=== PATIENT | male | born 1995 | race Caucasian/White ===

== ENCOUNTER 2020-08-20 18:18 | Observation (INO) | payer SELFPAY ==
[~2020-08-20 18:18] MED LIST: Dexamethasone 20 MG/5 ML VIAL ONE; Ketorolac Tromethamine 30 MG/ML VIAL ONE; Lidocaine 1% PF 5 ML VIAL ONE; Ondansetron PF 4 MG/2 ML Vial ONE; PROPOFOL 200 MG/20 ML VIAL ONE; diphenhydrAMINE 50 MG/ML VIAL ONE
[2020-08-20] MEDS ORDERED: Promethazine HCl 25 MG/ML VIAL ONE (18:57)
[2020-08-20] MEDS ORDERED: Morphine 4 MG/ML VIAL ONE (18:57)
[2020-08-20] MEDS ORDERED: Boostrix 0.5 ML (Tdap) VIAL ONE (19:28)
--- NOTE | 2020-08-20 19:32 | RAD ---
LEFT FOOT RADIOGRAPHS THREE VIEWS: 08/20/20 PROVIDED CLINICAL HISTORY: Left foot injury. FINDINGS: There is a comminuted fracture involving the medial aspects of the first metatarsal shaft. There is o verlying soft tissue irregularity. No additional fracture is evident. Alignment appears anatomic. Cassie nt spaces appear preserved. IMPRESSION: Markedly comminuted, incomplete fracture involving the medial aspects of the first metatarsal shaft. POS: BETTY
[2020-08-20] MEDS ORDERED: cefTRIAXone\\ROCEPHIN 1 GM VIAL ONE (20:01)
[2020-08-20] MEDS ORDERED: hydrALAZINE 20 MG/ML VIAL SLOW IVP PRN (20:36)
[2020-08-20] MEDS ORDERED: Morphine 4 MG/ML VIAL SLOW IVP PRN (20:36)
[2020-08-20] MEDS ORDERED: Ondansetron PF 4 MG/2 ML Vial IVP PRN (20:36)
[2020-08-20] MEDS ORDERED: Dextrose 5% in Water 1,000 ML IV PRN (20:36)
[2020-08-20] MEDS ORDERED: Dextrose 50% Abboject 50 ML SYRINGE SLOW IVP PRN (20:36)
[2020-08-20] MEDS ORDERED: Cyclobenzaprine 10 MG TAB PO PRN (20:39)
[2020-08-20] MEDS ORDERED: Ketorolac Tromethamine 30 MG/ML VIAL ONE (20:39)
[2020-08-20] MEDS ORDERED: traMADol HCl 50 MG TAB PO PRN ×2 (20:39)
[2020-08-20] MEDS ORDERED: Ondansetron PF 4 MG/2 ML Vial ONE (20:39)
[2020-08-20 20:47] LABS: #Lymphocytes 1.3 thou/uL (1.20-3.40); #Monocytes 0.5 thou/uL (0.11-0.59); #Neutrophils 9.1 thou/uL (1.40-6.50); %Basophils 0.4 % (0.0-1.0); %Eosinophils 0.4 % (0.0-10.0); %Lymphocytes 11.4 % (21.0-51.0); %Monocytes 4.5 % (0.0-10.0); %Neutrophils 83.2 % (42.0-75.0); Hemoglobin 13.2 g/dL (14.0-18.0); Mean Corpuscular HGB CONC 33.7 g/dL (32.0-36.0); Mean Corpuscular Hemoglobin 31.8 pg (27.0-31.0); Mean Corpuscular Volume 94.3 fL (78.0-98.0); Mean Platelet Volume 7.2 fL (7.4-10.4); Platelet Count 259 thou/uL (130-400); RBC Distribution Width 11.1 % (11.5-14.5); Red Blood Cell (RBC) Count 4.14 mill/uL (4.70-6.10); White Blood Cell (WBC) Count 10.9 thou/uL (4.8-10.8)
[2020-08-20 20:53] LABS: INR-International Normal Ratio 1.1; PTT 29.2 sec (22.9-36.1); Prothrombin Time 14.4 sec (12.0-14.7)
[2020-08-20 21:06] LABS: Phosphorus 3.6 mg/dL (2.3-4.7)
[2020-08-20 21:08] LABS: ALT (SGPT) 15 U/L (8-55); AST (SGOT) 15 U/L (5-34); Alkaline Phosphatase 72 U/L (40-110); Anion Gap 13 mmol/L (10-20); BUN (Urea Nitrogen) 18 mg/dL (8.9-20.6); Bilirubin, Total 0.2 mg/dL (0.2-1.2); Calc. Creatinine Clearance 0 mL/min (70-130); Calcium 8.3 mg/dL (7.8-10.44); Carbon Dioxide 23 mmol/L (22-29); Chloride 108 mmol/L (98-107); Globulin 2.3 g/dL (2.4-3.5); Glucose 113 mg/dL (70-105); Magnesium 1.9 mg/dL (1.6-2.6); Potassium 4.1 mmol/L (3.5-5.1); Protein, Total 6.3 g/dL (6.0-8.3); Sodium 140 mmol/L (136-145)
[2020-08-20] MEDS ORDERED: Fentanyl 100 MCG/2 ML VIAL ONE (23:00)
[2020-08-20 23:12] LABS: SARS-CoV-2 NAA Rapid Test Not Detected (NotDetected)
[2020-08-20] MEDS ORDERED: Neomycin-Polymyxin 1 ML AMP ONE (23:44)
[2020-08-20] MEDS ORDERED: Sodium Chloride 0.9% 10 ML ONE (23:44)
[2020-08-21] MEDS ORDERED: Meperidine HCl/PF 25 MG/ML VIAL ONE (00:37)
--- NOTE | 2020-08-21 02:09 | HP ---
TRAUMA SURGEON: Dr. Mcneal. CONSULTING PHYSICIAN: Dr. Rivera. HISTORY OF PRESENT ILLNESS: The patient is a 24-year-old male, presented to the emergency department via EMS after he had an accident with a chainsaw. The patient was using the chainsaw to cut a tree branch. He subsequently slipped and the chainsaw hit the top of his left foot and cut through his boot. The emergency department evaluated the patient and found that he had a left open first metatarsal fracture with concern for ligamentous injury as his left great toe has a drop. Upon my evaluation, the patient was lying in the stretcher, complaining of left-sided pain. He denies falling and hitting his head and loss of consciousness. He does not take any anticoagulation. He denies nausea, vomiting, diarrhea, chest pain, shortness of breath. REVIEW OF SYSTEMS: All additional 10-point review of systems negative except as indicated above. PAST MEDICAL HISTORY: None. PAST SURGICAL HISTORY: None. SOCIAL HISTORY: The patient smokes about a pack of cigarettes per day. He drinks alcohol a few times a week and he denies drug use. He works with heavy machinery. He lives at home with his girlfriend and child. MEDICATIONS: None. ALLERGIES: NO KNOWN DRUG ALLERGIES. PHYSICAL EXAMINATION: VITAL SIGNS: Temperature 97.5, pulse 69, respirations 20, oxygen saturation 100% on room air, blood pressure 129/77. PRIMARY SURVEY: Airway intact. Adequate breath sounds bilaterally. 2+ pulses in bilateral radials, femorals, and DPs. GCS 15. Gross motor sensation is intact. The patient has about a 4 cm laceration to the anterior aspect of the left foot. Bleeding is controlled. SECONDARY SURVEY: HEAD: Normocephalic and atraumatic. No gross palpable skull deformities or tenderness. EYES: Pupils 3 to 2, equal, round, and reactive to light bilaterally. ENT: No signs of trauma. C-SPINE: No step-offs or deformities. Nontender. C-collar not in place. CHEST: Nontender. No crepitus. No abrasions or ecchymosis noted. Equal chest movement. ABDOMEN: Soft, nontender, nondistended. PELVIS: Stable to palpation. Nontender. No abrasions or ecchymosis noted. RECTAL: Deferred. GENITOURINARY: Deferred. EXTREMITIES: The patient has a laceration to the anterior aspect of the left foot with a drop of the left great toe. Bleeding is controlled. 2+ pulses in bilateral radials, femorals, and DPs. BACK/SPINE: No step-offs, deformities, or tenderness to palpation of thoracic or lumbar spine. No abrasions or ecchymosis noted. NEUROLOGIC: 5/5 strength in bilateral gold nib grinder, plantar flexion, dorsiflexion. Gross normal sensation x4 extremities. LABORATORY FINDINGS: White count 10.9, hemoglobin 13.4, hematocrit 34.1, platelets 259. INR 1.1, PTT 29.2. Sodium 140, potassium 4.1, chloride 108, bicarb 23, BUN 18, creatinine 1.0, glucose 113, phosphorus 3.6, magnesium 1.9. Total bilirubin 0.2, AST 15, ALT 15, alkaline phosphatase 72. DIAGNOSTIC FINDINGS: X-ray of the left foot demonstrates markedly comminuted incomplete fracture involving the medial aspect of the first metatarsal shaft. ASSESSMENT: 1. Status post chainsaw accident. 2. Left open first metatarsal fracture with great toe drop. PLAN: The patient is admitted to the Trauma Service. Dr. Rivera is evaluating the patient and plans to take him to the OR this evening. Postoperatively, he will be admitted to the Trauma Service in the morning. He will work with Physical and Occupational Therapy and likely be discharged home to the care of his family. Repeat blood work in the morning. This patient was discussed with Dr. Mcneal before this dictation. Job ID: [id number]
[2020-08-21] MEDS: Famotidine/PF 20 mg/2ml Vial SLOW IVP SCH ×2 (02:38→08:23)
[2020-08-21] MEDS: Ibuprofen 600 MG TAB PO SCH ×3 (02:38→12:42)
[2020-08-21] MEDS: Acetaminophen 500 MG TAB PO SCH ×5 (02:38→15:15)
[2020-08-21] MEDS: Gabapentin 300 MG CAP PO SCH ×4 (02:38→15:14)
[2020-08-21] MEDS: Senokot S 8.6-50 MG TAB PO SCH ×2 (02:38→08:28)
[2020-08-21] MEDS: Sodium Chloride 0.9% 1,000 ML IV SCH ×3 (02:41→11:12)
[2020-08-21 02:48] VITALS: BMI 19.8
[2020-08-21] MEDS ORDERED: CEFAZOLIN 2 GM in Premix Bag 1 BAG IVPB SCH ×3 (06:00→13:00)
[2020-08-21 07:27] LABS: #Lymphocytes 0.6 thou/uL (1.20-3.40); #Monocytes 0.1 thou/uL (0.11-0.59); #Neutrophils 8.4 thou/uL (1.40-6.50); %Basophils 0.4 % (0.0-1.0); %Monocytes 0.8 % (0.0-10.0); %Neutrophils 91.8 % (42.0-75.0); Hemoglobin 13.1 g/dL (14.0-18.0); Mean Corpuscular HGB CONC 33.5 g/dL (32.0-36.0); Mean Corpuscular Hemoglobin 31.5 pg (27.0-31.0); Mean Corpuscular Volume 93.8 fL (78.0-98.0); Mean Platelet Volume 7.5 fL (7.4-10.4); Platelet Count 304 thou/uL (130-400); RBC Distribution Width 11.3 % (11.5-14.5); Red Blood Cell (RBC) Count 4.16 mill/uL (4.70-6.10); White Blood Cell (WBC) Count 9.1 thou/uL (4.8-10.8)
[2020-08-21 07:44] LABS: Anion Gap 12 mmol/L (10-20); BUN (Urea Nitrogen) 16 mg/dL (8.9-20.6); Calc. Creatinine Clearance 92 mL/min (70-130); Calcium 8.3 mg/dL (7.8-10.44); Carbon Dioxide 23 mmol/L (22-29); Chloride 107 mmol/L (98-107); Glucose 163 mg/dL (70-105); Magnesium 1.9 mg/dL (1.6-2.6); Phosphorus 2.9 mg/dL (2.3-4.7); Potassium 4.3 mmol/L (3.5-5.1); Sodium 138 mmol/L (136-145)
[2020-08-21] MEDS ORDERED: Polyethylene Glycol 3350 17 GM Packet PO SCH (09:00)
[2020-08-21] MEDS ORDERED: FLU VACC QS2020-21(6MOS UP)/PF 60 MCG/0.5 ML SYRINGE IM ONE (09:00)
[2020-08-21] MEDS ORDERED: HYDROcodone/Acetaminophen 7.5/325 mg Tablet PO PRN ×2 (09:11)
--- NOTE | 2020-08-21 09:11 | PDOC.EVN ---
Event Note - Event Note Event Note: Pt seen and examined. See trauma PA note for details. Plan PT to see this am. DC per ortho trauma
[2020-08-21 12:47] VITALS: BP 105/62; TEMP 97.9
--- NOTE | 2020-08-21 15:17 | DIS ---
DATE OF ADMISSION: 08/20/2020 DATE OF DISCHARGE: 08/21/2020 PROCEDURE PERFORMED: By Dr. Rivera, left open 1st metatarsal fracture, great toe repair. x-ray demonstrates comminuted incomplete fracture involving metatarsal aspect of the 1st metatarsal shaft. HOSPITAL COURSE: A 24-year-old male, presented to the emergency department via EMS, had a chainsaw accident to the right foot. After the patient was brought to the emergency department, the patient received antibiotics, pain medication. The patient was brought to the operating room at midnight for open fracture of the left great toe with great toe extensor tendon disruption. Following surgery, the patient received 3 doses of cefazolin, before discharge. The patient was started on pain and bowel regimen. At time of discharge, pain was well controlled. Discharged home on pain regimen and amoxicillin every 12 hours, 20 tablets. The patient instructed to be nonweightbearing . Follow up with Dr. Rivera' office in 7 days. appointment. OBJECTIVE: VITAL SIGNS: Temperature 97.7, pulse 102, respiratory rate 14, O2 saturation 97, and blood pressure 105/62. GENERAL: In no acute distress. Resting comfortably in bed. RESPIRATORY: No accessory muscle use. In no acute distress. EXTREMITIES: Right lower extremity splint, nonweightbearing. No labs at discharged ASSESSMENT: 1. Status post chainsaw accident. 2. Left open 1st metatarsal fracture, great toe drop. PLAN: Follow up Dr. Rivera' office in 7 days. Augmentin 10days Continue tramadol p.r.n. for pain control, take alternate Tylenol, Motrin as needed. Job ID: [id number] [facility]
[2020-08-21] MEDS ORDERED: Amoxicillin/Potassium Clav 875 MG TAB PO SCH (21:00)
--- NOTE | 2020-08-21 22:01 | OP ---
DATE OF PROCEDURE: 08/21/2020 PREOPERATIVE DIAGNOSIS: Left great toe chainsaw injury with partial fracture of great toe metatarsal shaft and laceration of extensor hallucis longus tendon. POSTOPERATIVE DIAGNOSIS: Left great toe chainsaw injury with partial fracture of great toe metatarsal shaft and laceration of extensor hallucis longus tendon. SURGICAL PROCEDURE: 1. Repair of left great toe extensor hallucis longus tendon. 2. Irrigation and debridement of left great toe metatarsal shaft partial fracture. 3. Complex wound closure (5 cm). ANESTHESIA: General. TOURNIQUET TIME: 33 minutes at 300 mmHg. COMPLICATIONS: None. DRAINS: None. SPECIMEN: None. OUTCOME: Satisfactory. INDICATIONS FOR PROCEDURE: The patient is a 24-year-old gentleman status post accidental chainsaw injury to left medial foot. He was wearing boots. Unfortunately, the chainsaw did go through the boot through the skin at the dorsal medial aspect of the foot, lacerating the extensor hallucis longus tendon as well as partially cutting into the great toe metatarsal at the dorsal medial aspect. This bony component incorporating not even half of the width of the metatarsal shaft with still mechanical stability of this bone. Given this injury, the patient now taken to the operating room urgently for irrigation, debridement, repair of extensor tendon. He has received tetanus booster as well as Ancef in the emergency room upon initial evaluation by the emergency room staff. DESCRIPTION OF PROCEDURE: The patient was brought to the operating room and a time-out performed followed by induction of general anesthesia. Next, the patient was positioned supine, and sterile prep and drape performed to the left lower extremity. Next, the limb was exsanguinated with Esmarch bandage, tourniquet inflated to 300 mmHg. The traumatic wound which was oblique in orientation overlying the dorsal medial aspect of the foot was lengthened dorsally. Next, some foreign debris was removed from the wound along with some small segments of comminuted bone. Following the completion of this, 2 L of normal saline using Pulsavac was irrigated through the wound. The wound was then again inspected, and some small foreign debris was further encountered and removed. This dissection involving skin and subcutaneous tissue down to the level of the fascia. Once all devitalized tissue and foreign debris was removed, the wound again irrigated with a L of normal saline using the Pulsavac. Next, the ends of the extensor hallucis longus tendon were identified. This was a complete transection. Once identified, they were freshened, and then 3-0 Ethibond suture was used with a modified [place] stitch to reapproximate the ends. With reapproximation of the ends, the toe was again brought up into just a slight dorsiflex posture at the metatarsophalangeal joint. Once the repair was accomplished, some additional sutures were used to reapproximate the periosteum over the small bony defect of the first metatarsal shaft. This was then followed by 2-0 Vicryl to try and reapproximate skin edges and then 3-0 nylon for the skin. Xeroform, gauze, Webril, and fiberglass splint were then applied to the leg. Tourniquet was let down and the patient was transferred to recovery room in stable condition. There were no complications. The patient tolerated the procedure well. Job ID: [id number]
== END 2020-08-21 15:43 | disposition home or self-care (01) ==
LOC: ERS 18:18 → SURG A 20:36
PROVIDERS: ADMIT Surgery; ATTEND Surgery
PROC: 0LMW0ZZ Reattachment of Left Foot Tendon, Open Approach (ICD-10-PCS; principal; 2020-08-21)
PROC: 0QSP0ZZ Reposition Left Metatarsal, Open Approach (ICD-10-PCS; 2020-08-21)
DX: S96.122A Laceration of muscle and tendon of long extensor muscle of toe at ankle and foot level, left foot, initial encounter (principal); S92.312B Displaced fracture of first metatarsal bone, left foot, initial encounter for open fracture; F17.210 Nicotine dependence, cigarettes, uncomplicated; Z20.822 Contact with and (suspected) exposure to COVID-19; W29.3XXA Contact with powered garden and outdoor hand tools and machinery, initial encounter
CPT/HCPCS: 36415; 80048; 80053; 83735; 84100; 85025; 85610; 85730; 86850; 86900; 86901; 90715; G0390; J0690; J0696; J1100; J1200; J1885; J2175; J2270; J2405; J2550; J2704; J3010; S0028; U0002